=== PATIENT | male | born 1990 | race Caucasian/White ===

== ENCOUNTER 2023-04-20 07:07 | Day surgery (SDC) | payer MEDICAID ==
[~2023-04-20] VITALS: Ht 170.2 cm; Wt 63.6 kg
[2023-04-20 07:15] VITALS: BP 111/70; PULSE 60; RESP 18
[2023-04-20] MEDS ORDERED: ESOM20CA PO (07:44)
[2023-04-20] MEDS ORDERED: fentaNYL/PF 50MCG/1 ML 2ML syringe ONE (09:25)
[2023-04-20] MEDS ORDERED: LIDOcaine Viscous 15ml cup ONE (09:25)
[2023-04-20] MEDS ORDERED: MIDAZolam 1 MG/ML 5ML VIAL ONE (09:25)
[2023-04-20 09:45] VITALS: BP 107/64; PULSE 45; RESP 21; O2SAT 96
[2023-04-20 09:55] VITALS: BP 102/70; PULSE 47; RESP 14; O2SAT 96
[2023-04-20 10:05] VITALS: BP 101/64; PULSE 47; RESP 16; O2SAT 95
[2023-04-20 10:15] VITALS: BP 111/65; PULSE 44; RESP 15; O2SAT 99
== END 2023-04-20 10:50 | disposition home or self-care (01) ==
LOC: GI LAB 07:07
PROVIDERS: ATTEND Internal Medicine Gastroenterology
DX: R10.13 Epigastric pain (principal); R11.2 Nausea with vomiting, unspecified; K29.50 Unspecified chronic gastritis without bleeding; J45.909 Unspecified asthma, uncomplicated; F12.90 Cannabis use, unspecified, uncomplicated; Z79.899 Other long term (current) drug therapy
CPT/HCPCS: 43239; 99152; J2250; J3010; J7030; Z7512; A4620